=== PATIENT | female | born 1955 | race Hispanic/Latino ===

== ENCOUNTER → 2022-10-01 | Outpatient (CLI) | payer OTHER, MEDICARE | END | disposition home or self-care (01) | LOC: SHCH 12:39 | PROVIDERS: ATTEND Internal Medicine Cardiovascular Disease | DX: I73.9 Peripheral vascular disease, unspecified (principal); I87.2 Venous insufficiency (chronic) (peripheral) | CPT/HCPCS: 93925; 93970 ==

== ENCOUNTER → 2022-12-24 | Outpatient (CLI) | payer OTHER, MEDICARE ==
[2022-12-24 11:56] LABS: BASOPHILS % (AUTO) 1.3 % (0.0-5.0); EOSINOPHILS # (AUTO) 0.54 K/uL (0.00-0.70); EOSINOPHILS % (AUTO) 7.2 % (0.0-8.0); HEMATOCRIT 46.5 % (36-48); IMMATURE GRANULOCYTE ABSOLUTE 0.02 K/uL (0-1); LYMPHOCYTES % (AUTO) 27.1 % (21.0-51.0); MEAN CORPUSCULAR HEMOGLOBIN 30.6 pg (27.0-33.0); MEAN CORPUSCULAR HGB CONC 32.5 g/dL (32.0-36.0); MEAN CORPUSCULAR VOLUME 94.3 fL (79-99); MONOCYTES # (AUTO) 0.6 K/uL (0.1-1.0); MONOCYTES % (AUTO) 7.9 % (3.0-13.0); NEUTROPHILS # (AUTO) 4.2 K/uL (1.8-7.7); NEUTROPHILS % (AUTO) 56.2 % (40.0-77.0); PLATELET COUNT (AUTO) 240 K/uL (130-400); RED BLOOD CELL COUNT(AUTO) 4.93 MIL/uL (4.00-5.50); RED CELL DISTRIBUTION WIDTH 13.1 % (11.0-15.5); WHITE BLOOD COUNT (AUTO) 7.5 K/uL (4.8-10.8)
[2022-12-24 12:02] LABS: CREATININE 0.8 mg/dL (0.5-1.5); POTASSIUM 4.1 mmol/L (3.5-5.1)
[2022-12-24 12:32] LABS: INR 1.03 (0.85-1.15); PARTIAL THROMBOPLASTIN TIME 24.3 SEC (26.3-35.5); PROTHROMBIN TIME 11.1 SEC (9.6-11.6)
== END | disposition home or self-care (01) ==
LOC: LAB 10:23
PROVIDERS: ATTEND Internal Medicine Cardiovascular Disease
DX: I87.1 Compression of vein (principal); I87.2 Venous insufficiency (chronic) (peripheral); I10 Essential (primary) hypertension; I73.9 Peripheral vascular disease, unspecified; E11.9 Type 2 diabetes mellitus without complications; E78.5 Hyperlipidemia, unspecified; M79.89 Other specified soft tissue disorders; E66.9 Obesity, unspecified; Z68.37 Body mass index [BMI] 37.0-37.9, adult; Z79.84 Long term (current) use of oral hypoglycemic drugs; Z79.899 Other long term (current) drug therapy
CPT/HCPCS: 36415; 80048; 85025; 85610; 85730

== ENCOUNTER 2023-04-30 05:42 | Day surgery (SDC) | payer OTHER, MEDICARE ==
[2023-04-26 13:31] LABS: BASOPHILS # (AUTO) 0.08 K/uL (0.00-0.20); BASOPHILS % (AUTO) 1.2 % (0.0-5.0); EOSINOPHILS # (AUTO) 0.33 K/uL (0.00-0.70); HEMATOCRIT 43.9 % (36-48); IMMATURE GRANULOCYTE ABSOLUTE 0.01 K/uL (0-1); LYMPHOCYTES # (AUTO) 1.8 K/uL (1.0-4.8); LYMPHOCYTES % (AUTO) 26.6 % (21.0-51.0); MEAN CORPUSCULAR HEMOGLOBIN 30.5 pg (27.0-33.0); MEAN CORPUSCULAR VOLUME 92.4 fL (79-99); MONOCYTES # (AUTO) 0.5 K/uL (0.1-1.0); MONOCYTES % (AUTO) 7.5 % (3.0-13.0); NEUTROPHILS % (AUTO) 59.5 % (40.0-77.0); PLATELET COUNT (AUTO) 206 K/uL (130-400); RED BLOOD CELL COUNT(AUTO) 4.75 MIL/uL (4.00-5.50); RED CELL DISTRIBUTION WIDTH 12.9 % (11.0-15.5); WHITE BLOOD COUNT (AUTO) 6.7 K/uL (4.8-10.8)
[2023-04-26 13:36] LABS: CREATININE 0.9 mg/dL (0.5-1.5); POTASSIUM 4.2 mmol/L (3.5-5.1)
[2023-04-26 13:39] LABS: INR 1.03 (0.85-1.15); PROTHROMBIN TIME 11.9 SEC (9.6-11.6)
[2023-04-26 13:41] LABS: PARTIAL THROMBOPLASTIN TIME 27.2 SEC (26.3-35.5)
[2023-04-29 13:02] VITALS: BP 171/82; PULSE 77; RESP 18
[2023-04-30] VITALS (26 sets, daily range): BP systolic 112–196; BP diastolic 59–89; PULSE 62–75; RESP 14–22
[~2023-04-30] VITALS: Ht 157.5 cm; Wt 89.8 kg
[~2023-04-30 05:42] MED LIST: AEC81 PO; AMLO-258 PO; ATOR10 PO; CLOP75TA32 PO; EMPA1TAB5 PO; ERGO500093 PO; GLIP10TA9 PO; HYDR25TA PO; INSU100V37 SQ
[2023-04-30] MEDS ORDERED: 0.9%NACL 1000ML 1,000 ML IV ONE (06:15)
[2023-04-30] MEDS ORDERED: LIDOCAINE HCL 400MG/20ML VIAL ONE (07:12)
[2023-04-30] MEDS ORDERED: IODIXANOL 320 MG/ML 100 ML VIAL ONE (07:12)
[2023-04-30] MEDS ORDERED: HEPARIN 10,000 UNIT/10ML (1,000 UNIT/ML) VIAL ONE (07:12)
[2023-04-30] MEDS ORDERED: FENTANYL CITRATE PF 50 MCG/1 ML 2ML VIAL ONE (07:43)
[2023-04-30] MEDS ORDERED: MIDAZOLAM HCL 1 MG/ML 2ML VIAL ONE ×2 (07:43→08:23)
[2023-04-30] MEDS ORDERED: LABETALOL 20MG SYG IV ONE (09:12)
[2023-04-30] MEDS ORDERED: NITROGLYCERIN 0.4 MG SL TAB SL PRN (09:30)
[2023-04-30] MEDS ORDERED: GLUCAGON 1MG KIT 1 MG ML IM PRN (09:30)
[2023-04-30] MEDS ORDERED: DEXTROSE 50%-WATER 50 ML DISP.SYRIN IV PRN (09:30)
[2023-04-30] MEDS ORDERED: 0.9%NACL 1000ML 1,000 ML IV SCH (09:30)
[2023-04-30] MEDS ORDERED: ATROPINE 1MG SYG IVP ONE (10:54)
[2023-04-30] MEDS ORDERED: INSULIN HUMULIN R 100 UNIT/ML 3ML SQ SCH (11:30)
== END 2023-04-30 15:34 | disposition home or self-care (01) ==
LOC: DAH 05:42
PROVIDERS: ATTEND Internal Medicine Cardiovascular Disease
DX: I70.211 Atherosclerosis of native arteries of extremities with intermittent claudication, right leg (principal); I87.2 Venous insufficiency (chronic) (peripheral); E11.51 Type 2 diabetes mellitus with diabetic peripheral angiopathy without gangrene; I70.92 Chronic total occlusion of artery of the extremities; I77.1 Stricture of artery; I10 Essential (primary) hypertension; I25.10 Atherosclerotic heart disease of native coronary artery without angina pectoris; E78.5 Hyperlipidemia, unspecified; E66.9 Obesity, unspecified; Z79.899 Other long term (current) drug therapy; Z79.01 Long term (current) use of anticoagulants; Z79.82 Long term (current) use of aspirin; Z87.891 Personal history of nicotine dependence; Z98.890 Other specified postprocedural states; Z68.36 Body mass index [BMI] 36.0-36.9, adult
CPT/HCPCS: 80048; 85025; 85610; 85730; 36415 ×2; 93005; 75716; 85347; 82948 ×2; C9772; C1725 ×4; C1769 ×3; C1894 ×2; C1893; C1887; J3010; J3490; J7030; J1644 ×2; J2250 ×2; Q9967; A4215; A6402; A4222; A4221; A4663; A4216; A4606; A4223 ×3; A4554; 75774; 96360; 96361; 99156; 99157; J0461

== ENCOUNTER → 2023-07-30 | Outpatient (CLI) | payer OTHER, MEDICARE ==
[2023-07-30 12:08] LABS: BASOPHILS # (AUTO) 0.09 K/uL (0.00-0.20); BASOPHILS % (AUTO) 1.2 % (0.0-5.0); EOSINOPHILS % (AUTO) 6.4 % (0.0-8.0); HEMATOCRIT 44.9 % (36-48); IMMATURE GRANULOCYTE ABSOLUTE 0.02 K/uL (0-1); LYMPHOCYTES # (AUTO) 2.2 K/uL (1.0-4.8); LYMPHOCYTES % (AUTO) 28.5 % (21.0-51.0); MEAN CORPUSCULAR HGB CONC 33.2 g/dL (32.0-36.0); MEAN CORPUSCULAR VOLUME 93.3 fL (79-99); MONOCYTES # (AUTO) 0.6 K/uL (0.1-1.0); MONOCYTES % (AUTO) 7.7 % (3.0-13.0); NEUTROPHILS # (AUTO) 4.4 K/uL (1.8-7.7); NEUTROPHILS % (AUTO) 55.9 % (40.0-77.0); PLATELET COUNT (AUTO) 230 K/uL (130-400); RED BLOOD CELL COUNT(AUTO) 4.81 MIL/uL (4.00-5.50); RED CELL DISTRIBUTION WIDTH 13.2 % (11.0-15.5); WHITE BLOOD COUNT (AUTO) 7.8 K/uL (4.8-10.8)
[2023-07-30 12:15] LABS: CREATININE 0.9 mg/dL (0.5-1.0); POTASSIUM 3.8 mmol/L (3.5-5.1)
[2023-07-30 12:18] LABS: INR 0.96 (0.85-1.15); PROTHROMBIN TIME 11.4 SEC (9.6-11.6)
[2023-07-30 12:20] LABS: PARTIAL THROMBOPLASTIN TIME 28.2 SEC (26.3-35.5)
== END | disposition home or self-care (01) ==
LOC: LAB 08:09
PROVIDERS: ATTEND Internal Medicine Cardiovascular Disease
DX: I73.9 Peripheral vascular disease, unspecified (principal); I87.2 Venous insufficiency (chronic) (peripheral); I10 Essential (primary) hypertension; E11.9 Type 2 diabetes mellitus without complications; E66.9 Obesity, unspecified; Z95.820 Peripheral vascular angioplasty status with implants and grafts; E78.5 Hyperlipidemia, unspecified; I89.1 Lymphangitis; R79.1 Abnormal coagulation profile
CPT/HCPCS: 36415; 80048; 85025; 85610; 85730

== ENCOUNTER → 2024-02-07 | Outpatient (CLI) | payer OTHER, MEDICARE ==
[~2024-02-07] MED LIST changes: +GLIP10TA16 PO; -GLIP10TA9 PO
== END | disposition home or self-care (01) ==
LOC: LAB 12:50
PROVIDERS: ATTEND Internal Medicine Cardiovascular Disease
DX: I87.2 Venous insufficiency (chronic) (peripheral) (principal)
CPT/HCPCS: 36415; 80048

== ENCOUNTER → 2024-05-30 | Outpatient (CLI) | payer OTHER, MEDICARE ==
--- NOTE | 2024-06-01 15:22 | HMCSR ---
APPROVED REPORT Laterality: Bilateral Indications Claudication: , PAD VELOCITY AND DOPPLER WAVEFORM ANALYSIS KIESELGUHR REGENERATOR OPERATOR (R) 145.7cm/sec, Biphasic, KIESELGUHR REGENERATOR OPERATOR (L) 127.2cm/sec, Biphasic, Prof Fem Art. (R) 62.0cm/sec, Biphasic, Prof Fem Art. (L) 60.1cm/sec, Biphasic, Fem Art Prox. (R) 75.0cm/sec, Biphasic, Fem Art Prox. (L) 78.1cm/sec, Biphasic, Fem Art Mid. (R) 75.0cm/sec, Biphasic, Fem Art Mid. (L) 87.0cm/sec, Biphasic, Fem Art Dist (R) 81.6cm/sec, Biphasic, Fem Art Dist. (L) 61.9cm/sec, Biphasic, Pop Art(AK) (R) 57.9cm/sec, Monophasic, Pop Art (AK) (L) 64.6cm/sec, Biphasic, Pop Art (Fossa)(R) 50.6cm/sec, Monophasic, Pop Art (Fossa) (L) 84.3cm/sec, Biphasic, Pop Art(BK) (R) 535.1cm/sec, Monophasic, Severe > 75%Pop Art (BK) (L) 129.8cm/sec, Biphasic, SNAP SHEARER Prox. (R) 60.4cm/sec, Monophasic, SNAP SHEARER Prox. (L) 351.2cm/sec, Biphasic, Severe > 75% SNAP SHEARER Mid. (R) 71.8cm/sec, Monophasic, SNAP SHEARER Mid. (L) 67.7cm/sec, Monophasic, SNAP SHEARER Dist. (R) 66.9cm/sec, Monophasic, SNAP SHEARER Dist. (L) 52.2cm/sec, Monophasic, Per Art Prox. (R) 34.3cm/sec, Monophasic, Per Art Prox. (L) 70.0cm/sec, Biphasic, Per Art Mid. (R) 28.6cm/sec, Monophasic, Per Art Mid. (L) 81.6cm/sec, Biphasic, Per Art Dist. (R) 48.5cm/sec, Monophasic, Per Art Dist. (L) 83.4cm/sec, Biphasic, HARLEEN Prox. (R) cm/sec, Occluded, HARLEEN Prox. (L) 223.8cm/sec, Biphasic, Moderate > 50% HARLEEN Mid. (R) cm/sec, Occluded HARLEEN Mid. (L) cm/sec, Occluded, HARLEEN Dist. (R) cm/sec, Occluded, HARLEEN Dist. (L) cm/sec, Occluded, Technologist Impression Evidence of >75% stenosis in the Right distal Popliteal artery. Right HARLEEN appears occluded. Evidence of >75% stenosis in the Left proximal SNAP SHEARER. Evidence of >50% stenosis in the Left proximal HARLEEN. Occlusion of the Left mid to distal HARLEEN. 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
--- NOTE | 2024-06-01 15:23 | HMCSR ---
APPROVED REPORT Bilateral Lower Extremity Venous Study for DVT., Venous Competence. Indications i87.1, i87.2 Vein Imaging CFV (R): Normal flow, augmentation and compression. No evidence of DVT. 10.0mm 906ms of reflux. SFJ (R): Normal flow, augmentation and compression. No evidence of DVT. FEM (R): Normal flow, augmentation and compression. No evidence of DVT. POP (R): Normal flow, augmentation and compression. No evidence of DVT. DFV (R): Normal flow, augmentation and compression. No evidence of DVT. PTV (R): Normal flow, augmentation and compression. No evidence of DVT. Peroneals (R): Normal flow, augmentation and compression. No evidence of DVT. CFV (L): Normal flow, augmentation and compression. No evidence of DVT. 12.6mm 1094ms of reflux. SFJ (L): Normal flow, augmentation and compression. No evidence of DVT. FEM (L): Normal flow, augmentation and compression. No evidence of DVT. POP (L): Normal flow, augmentation and compression. No evidence of DVT. DFV (L): Normal flow, augmentation and compression. No evidence of DVT. PTV (L): Normal flow, augmentation and compression. No evidence of DVT. Peroneals (L): Normal flow, augmentation and compression. No evidence of DVT. Technologist Impression Deep veins of the bilateral lower extremities appear patent and compressible without thrombus. Deep venous reflux noted in the LCFV. Superficial venous insufficiency noted in the RSSV. RGSV - not seen RSSV prox 1.9mm 0.0ms mid 3.1mm 1350ms (cluster of veins) LGSV junction 4.9mm 367ms thigh - not seen knee - not seen calf 1.7mm 0.0ms LSSV prox 1.5mm 0.0ms mid 2.7mm 0.0ms Conclusion Deep venous reflux noted in the LCFV. Superficial venous insufficiency noted in the RSSV. Conclusion Deep venous reflux noted in the LCFV. Superficial venous insufficiency noted in the RSSV.
== END | disposition home or self-care (01) ==
LOC: SHCH 13:18
PROVIDERS: ATTEND Internal Medicine Cardiovascular Disease
DX: I87.2 Venous insufficiency (chronic) (peripheral) (principal); I73.9 Peripheral vascular disease, unspecified
CPT/HCPCS: 93925; 93970